=== PATIENT | male | born 1985 | race Caucasian/White ===

== ENCOUNTER 2025-01-25 10:51 | Outpatient (CLI) | payer BC, SELFPAY | END 2025-01-25 10:52 | disposition home or self-care (01) | LOC: SLEEP 10:52 | PROVIDERS: Referring Provider Family Medicine; Visit Provider Internal Medicine Pulmonary Disease | DX: G47.33 Obstructive sleep apnea (adult) (pediatric) (principal) | CPT/HCPCS: 95810; G0399 ==